=== PATIENT | female | born 1945 | race Asian ===

== ENCOUNTER 2021-06-18 18:26 | Inpatient (IN) | payer MEDICARE, OTHER ==
[~2021-06-18] VITALS: Ht 175.3 cm; Wt 80.7 kg
[2021-06-18] MEDS ORDERED: LOSA25TA21 PO (18:37)
[2021-06-18] MEDS ORDERED: ALLO100T2 PO (18:37)
[2021-06-18] MEDS ORDERED: PANT-31 PO (18:37)
[2021-06-18] MEDS ORDERED: ATOR20TA86 PO (18:37)
[2021-06-18 20:09] LABS: BASOPHILS % (AUTO) 0.5 % (0.0-2.0); EOSINOPHILS % (AUTO) 2.1 % (1.0-6.0); HEMATOCRIT 39.2 % (36-46); HEMOGLOBIN 12.9 g/dL (12.0-16.0); LYMPHOCYTES # (AUTO) 1.8 K/uL (1.0-4.8); LYMPHOCYTES % (AUTO) 24.8 % (22.0-44.0); MEAN CORPUSCULAR HGB CONC 32.8 G/dL (31.0-37.0); MEAN CORPUSCULAR VOLUME 88 fL (80-100); MONOCYTES # (AUTO) 0.6 K/uL (0.1-1.0); MONOCYTES % (AUTO) 7.8 % (2.0-9.0); NEUTROPHILS # (AUTO) 4.7 K/uL (1.8-7.7); NEUTROPHILS % (AUTO) 64.8 % (40.0-70.0); PLATELET COUNT (AUTO) 217 K/uL (150-450); RED BLOOD CELL COUNT(AUTO) 4.44 MIL/uL (4.00-5.20); RED CELL DISTRIBUTION WIDTH 13.4 % (11.5-14.5)
[2021-06-18 20:24] LABS: INR 0.9 (0.9-1.1); PROTHROMBIN TIME 10.1 SEC (9.4-11.6)
[2021-06-18 20:31] LABS: B-TYPE NATRIURETIC PEPTIDE 19 pg/mL (0-100)
[2021-06-18 20:42] LABS: ANION GAP 7 mmol/L (8-16); CALCIUM, TOTAL 9.2 mg/dL (8.8-10.5); CARBON DIOXIDE 30 mmol/L (22-29); CHLORIDE 103 mmol/L (98-107); CREATININE 0.76 mg/dL (0.60-1.30); GLOMERULAR FILTR. RATE CALC > 60 mL/min (>60); GLUCOSE,RANDOM 100 mg/dL (70-110); POTASSIUM 4.5 mmol/L (3.5-5.1); SODIUM SERUM 140 mmol/L (136-145); UREA NITROGEN, BLOOD 17 mg/dL (7-18)
[2021-06-18] MEDS ORDERED: NITROGLYCERIN 0.4 MG SUBLINGUAL TABLET #25 SL ONE (21:00)
[2021-06-18 21:08] LABS: ALANINE AMINOTRANSFERASE 36 U/L (12-78); ALBUMIN 3.6 g/dL (3.4-5.0); ALKALINE PHOSPHATASE 123 U/L (46-116); ASPARTATE AMINOTRANSFERASE 29 U/L (15-37); BILIRUBIN,TOTAL 0.4 mg/dL (0.1-1.0); CREATINE KINASE, TOTAL ONLY 180 U/L (26-192); LIPASE 107 U/L (73-393); TOTAL PROTEIN, SERUM 7.5 g/dL (6.4-8.2)
[2021-06-18] MEDS ORDERED: ASPIRIN 81 MG CHEWABLE TABLET PO ONE (21:15)
[2021-06-18] MEDS ORDERED: NITROGLYCERIN 0.4 MG SUBLINGUAL TABLET #25 SL PRN (21:30)
[2021-06-18] MEDS ORDERED: ONDANSETRON HCL 4 MG/2 ML VIAL IVP PRN (21:30)
[2021-06-18 21:48] LABS: D-DIMER 0.49 mg/L FEU (0.00-0.50)
[2021-06-19] MEDS: HEPARIN SODIUM,PORCINE 5,000 UNITS/ML VIAL SQ SCH ×3 (00:01→16:23)
[2021-06-19 01:24] LABS: APPEARANCE,URINE CLEAR (CLEAR); BILIRUBIN,URINE NEGATIVE (NEGATIVE); GLUCOSE, URINE (UA) NEGATIVE (NEGATIVE); KETONES,URINE NEGATIVE (NEGATIVE); LEUKOCYTE ESTERASE ,URINE NEGATIVE (NEGATIVE); NITRATE,URINE NEGATIVE (NEGATIVE); OCCULT BLOOD,URINE TRACE (NEGATIVE); PROTEIN,URINE NEGATIVE (NEGATIVE); UROBILINOGEN,URINE 0.2 mg/dL (<=1.0)
[2021-06-19 01:34] LABS: BACTERIA,URINE Rare /HPF (None Seen); SQUAMOUS EPITHELIAL CELL,UR Few /LPF (None Seen)
[2021-06-19] MEDS: ASPIRIN 81 MG CHEWABLE TABLET PO SCH (08:06)
[2021-06-19 10:17] VITALS: BP 151/79
[2021-06-19 12:32] VITALS: BP 143/73
[2021-06-19 16:47] VITALS: BP 120/60
[2021-06-19 20:25] VITALS: BP 144/67
[2021-06-19] MEDS: LOSARTAN POTASSIUM 25 MG TABLET PO SCH (20:31)
[2021-06-19] MEDS: PANTOPRAZOLE SODIUM 40 MG DR TABLET PO SCH (20:31)
[2021-06-19] MEDS: ALLOPURINOL 100 MG TABLET PO SCH (20:31)
[2021-06-19] MEDS: ACETAMINOPHEN 325 MG TABLET PO PRN (22:26)
[2021-06-20 05:06] VITALS: BP 130/63
[2021-06-20 07:01] LABS: BASOPHILS % (AUTO) 0.7 % (0.0-2.0); EOSINOPHILS % (AUTO) 2.7 % (1.0-6.0); HEMATOCRIT 41.3 % (36-46); HEMOGLOBIN 13.4 g/dL (12.0-16.0); LYMPHOCYTES # (AUTO) 1.7 K/uL (1.0-4.8); LYMPHOCYTES % (AUTO) 31.3 % (22.0-44.0); MEAN CORPUSCULAR HEMOGLOBIN 28.7 pg (26.0-34.0); MEAN CORPUSCULAR HGB CONC 32.4 G/dL (31.0-37.0); MEAN CORPUSCULAR VOLUME 89 fL (80-100); MONOCYTES # (AUTO) 0.4 K/uL (0.1-1.0); MONOCYTES % (AUTO) 7.5 % (2.0-9.0); NEUTROPHILS # (AUTO) 3.2 K/uL (1.8-7.7); NEUTROPHILS % (AUTO) 57.8 % (40.0-70.0); PLATELET COUNT (AUTO) 224 K/uL (150-450); RED BLOOD CELL COUNT(AUTO) 4.66 MIL/uL (4.00-5.20); RED CELL DISTRIBUTION WIDTH 13.7 % (11.5-14.5)
[2021-06-20 07:09] VITALS: BP 144/63
[2021-06-20 07:29] LABS: ALANINE AMINOTRANSFERASE 37 U/L (12-78); ALBUMIN 3.6 g/dL (3.4-5.0); ALKALINE PHOSPHATASE 123 U/L (46-116); ANION GAP 9 mmol/L (8-16); ASPARTATE AMINOTRANSFERASE 28 U/L (15-37); BILIRUBIN,TOTAL 0.5 mg/dL (0.1-1.0); CALCIUM, TOTAL 9.2 mg/dL (8.8-10.5); CARBON DIOXIDE 28 mmol/L (22-29); CHLORIDE 103 mmol/L (98-107); CREATININE 0.64 mg/dL (0.60-1.30); GLUCOSE,RANDOM 99 mg/dL (70-110); POTASSIUM 4.2 mmol/L (3.5-5.1); SODIUM SERUM 140 mmol/L (136-145); TOTAL PROTEIN, SERUM 7.5 g/dL (6.4-8.2); UREA NITROGEN, BLOOD 17 mg/dL (7-18)
[2021-06-20 07:31] LABS: GLOMERULAR FILTR. RATE CALC > 60 mL/min (>60)
[2021-06-20] MEDS: HEPARIN SODIUM,PORCINE 5,000 UNITS/ML VIAL SQ SCH ×4 (08:04→23:22)
[2021-06-20] MEDS: ASPIRIN 81 MG CHEWABLE TABLET PO SCH (08:04)
[2021-06-20] MEDS: ATORVASTATIN CALCIUM 20 MG TABLET PO SCH (08:04)
[2021-06-20 10:13] LABS: FREE T4 (FREE THYROXINE) 1.07 ng/dL (0.76-1.46); THYROID STIMULATING HORMONE 2.39 uIU/mL (0.36-3.74)
[2021-06-20 10:53] VITALS: BP 127/59
[2021-06-20 15:54] VITALS: BP 136/71
[2021-06-20 19:18] VITALS: BP 151/76
[2021-06-20] MEDS: LOSARTAN POTASSIUM 25 MG TABLET PO SCH (20:05)
[2021-06-20] MEDS: PANTOPRAZOLE SODIUM 40 MG DR TABLET PO SCH (20:05)
[2021-06-20] MEDS: ALLOPURINOL 100 MG TABLET PO SCH (20:05)
[2021-06-20] MEDS: ACETAMINOPHEN 325 MG TABLET PO PRN (20:53)
[2021-06-21 00:03] VITALS: BP 138/63
[2021-06-21] MEDS ORDERED: MELATONIN 3 MG TABLET PO PRN (00:15)
[2021-06-21 04:27] VITALS: BP 130/61
[2021-06-21 07:10] LABS: BASOPHILS % (AUTO) 0.8 % (0.0-2.0); EOSINOPHILS % (AUTO) 2.5 % (1.0-6.0); HEMOGLOBIN 12.8 g/dL (12.0-16.0); LYMPHOCYTES # (AUTO) 1.7 K/uL (1.0-4.8); LYMPHOCYTES % (AUTO) 29.9 % (22.0-44.0); MEAN CORPUSCULAR HEMOGLOBIN 28.7 pg (26.0-34.0); MEAN CORPUSCULAR HGB CONC 32.8 G/dL (31.0-37.0); MEAN CORPUSCULAR VOLUME 88 fL (80-100); MONOCYTES # (AUTO) 0.5 K/uL (0.1-1.0); MONOCYTES % (AUTO) 8.4 % (2.0-9.0); NEUTROPHILS # (AUTO) 3.4 K/uL (1.8-7.7); NEUTROPHILS % (AUTO) 58.4 % (40.0-70.0); PLATELET COUNT (AUTO) 212 K/uL (150-450); RED BLOOD CELL COUNT(AUTO) 4.45 MIL/uL (4.00-5.20); RED CELL DISTRIBUTION WIDTH 13.6 % (11.5-14.5)
[2021-06-21 07:49] LABS: ALANINE AMINOTRANSFERASE 33 U/L (12-78); ALBUMIN 3.4 g/dL (3.4-5.0); ALKALINE PHOSPHATASE 111 U/L (46-116); ANION GAP 7 mmol/L (8-16); ASPARTATE AMINOTRANSFERASE 23 U/L (15-37); BILIRUBIN,TOTAL 0.5 mg/dL (0.1-1.0); CALCIUM, TOTAL 8.8 mg/dL (8.8-10.5); CARBON DIOXIDE 29 mmol/L (22-29); CHLORIDE 103 mmol/L (98-107); CREATININE 0.75 mg/dL (0.60-1.30); GLUCOSE,RANDOM 99 mg/dL (70-110); POTASSIUM 3.9 mmol/L (3.5-5.1); SODIUM SERUM 139 mmol/L (136-145); TOTAL PROTEIN, SERUM 7.1 g/dL (6.4-8.2); UREA NITROGEN, BLOOD 15 mg/dL (7-18)
[2021-06-21 07:50] LABS: GLOMERULAR FILTR. RATE CALC > 60 mL/min (>60)
[2021-06-21 08:01] VITALS: BP 137/59
[2021-06-21] MEDS: ASPIRIN 81 MG CHEWABLE TABLET PO SCH (08:20)
[2021-06-21] MEDS: HEPARIN SODIUM,PORCINE 5,000 UNITS/ML VIAL SQ SCH ×3 (08:20→23:14)
[2021-06-21] MEDS: ATORVASTATIN CALCIUM 20 MG TABLET PO SCH (08:20)
[2021-06-21 19:20] VITALS: BP 136/68
[2021-06-21] MEDS: PANTOPRAZOLE SODIUM 40 MG DR TABLET PO SCH (20:26)
[2021-06-21] MEDS: ALLOPURINOL 100 MG TABLET PO SCH (20:26)
[2021-06-21] MEDS: LOSARTAN POTASSIUM 25 MG TABLET PO SCH (20:26)
[2021-06-21 23:08] VITALS: BP 111/61
[2021-06-22] VITALS (8 sets, daily range): BP systolic 108–153; BP diastolic 50–89
[2021-06-22 07:07] LABS: BASOPHILS % (AUTO) 0.5 % (0.0-2.0); EOSINOPHILS % (AUTO) 2.7 % (1.0-6.0); HEMATOCRIT 41.2 % (36-46); HEMOGLOBIN 13.5 g/dL (12.0-16.0); LYMPHOCYTES # (AUTO) 1.7 K/uL (1.0-4.8); MEAN CORPUSCULAR HEMOGLOBIN 29.3 pg (26.0-34.0); MEAN CORPUSCULAR HGB CONC 32.7 G/dL (31.0-37.0); MEAN CORPUSCULAR VOLUME 90 fL (80-100); MONOCYTES # (AUTO) 0.6 K/uL (0.1-1.0); MONOCYTES % (AUTO) 9.1 % (2.0-9.0); NEUTROPHILS # (AUTO) 3.7 K/uL (1.8-7.7); NEUTROPHILS % (AUTO) 59.7 % (40.0-70.0); PLATELET COUNT (AUTO) 219 K/uL (150-450); RED CELL DISTRIBUTION WIDTH 13.6 % (11.5-14.5)
[2021-06-22 08:20] LABS: ALANINE AMINOTRANSFERASE 47 U/L (12-78); ALBUMIN 3.6 g/dL (3.4-5.0); ALKALINE PHOSPHATASE 130 U/L (46-116); ANION GAP 7 mmol/L (8-16); ASPARTATE AMINOTRANSFERASE 34 U/L (15-37); BILIRUBIN,TOTAL 0.3 mg/dL (0.1-1.0); CALCIUM, TOTAL 9.2 mg/dL (8.8-10.5); CARBON DIOXIDE 28 mmol/L (22-29); CHLORIDE 102 mmol/L (98-107); CREATININE 0.68 mg/dL (0.60-1.30); GLUCOSE,RANDOM 99 mg/dL (70-110); POTASSIUM 4.6 mmol/L (3.5-5.1); SODIUM SERUM 137 mmol/L (136-145); TOTAL PROTEIN, SERUM 7.6 g/dL (6.4-8.2); UREA NITROGEN, BLOOD 16 mg/dL (7-18)
[2021-06-22 08:21] LABS: GLOMERULAR FILTR. RATE CALC > 60 mL/min (>60)
[2021-06-22] MEDS: ATORVASTATIN CALCIUM 20 MG TABLET PO SCH (08:50)
[2021-06-22] MEDS: ASPIRIN 81 MG CHEWABLE TABLET PO SCH (08:50)
[2021-06-22] MEDS: HEPARIN SODIUM,PORCINE 5,000 UNITS/ML VIAL SQ SCH ×2 (08:56→15:57)
[2021-06-22] MEDS ORDERED: REGADENOSON 0.4 MG/5 ML PF SYRINGE IVP ONE (12:15)
[2021-06-22] MEDS ORDERED: LOSA50TA37 PO (14:02)
[2021-06-22] MEDS ORDERED: ATOR40TA28 PO (14:02)
[2021-06-22] MEDS: ALLOPURINOL 100 MG TABLET PO SCH (20:12)
[2021-06-22] MEDS: PANTOPRAZOLE SODIUM 40 MG DR TABLET PO SCH (20:12)
[2021-06-22] MEDS: LOSARTAN POTASSIUM 25 MG TABLET PO SCH (20:13)
[2021-06-23] VITALS: BP 125/53
[2021-06-23] MEDS: HEPARIN SODIUM,PORCINE 5,000 UNITS/ML VIAL SQ SCH ×2 (00:53→08:19)
[2021-06-23 04:36] VITALS: BP 123/66
[2021-06-23 07:19] VITALS: BP 142/77
[2021-06-23] MEDS: ATORVASTATIN CALCIUM 20 MG TABLET PO SCH (08:18)
[2021-06-23] MEDS: ASPIRIN 81 MG CHEWABLE TABLET PO SCH (08:18)
[2021-06-23] MEDS ORDERED: LOSA25TA21 PO (10:41)
[2021-06-23] MEDS ORDERED: PANT-31 PO (10:45)
[2021-06-23] MEDS ORDERED: ASPI-1450 PO (10:45)
[2021-06-23] MEDS ORDERED: ACET-2247 PO (10:46)
[2021-06-23] MEDS ORDERED: MELA3TAB89 PO (10:46)
[2021-06-23] MEDS ORDERED: REGADENOSON 0.4 MG/5 ML PF SYRINGE IVP ONE (10:59)
[2021-06-25 12:08] LABS: GLUCOMETER DEV NAME(LOC) 5N.1C; GLUCOSE,POINT OF CARE 265 MG/DL (70-110)
== END 2021-06-23 11:00 | disposition home or self-care (01) | DRG 311 ==
LOC: EMS 18:29 → 5S 06-19 05:40
PROVIDERS: ADMIT Internal Medicine; ATTEND Internal Medicine
PROC: 4A02XM4 Measurement of Cardiac Total Activity, External Approach (ICD-10-PCS; principal; 2021-06-22)
PROC: 3E073KZ Introduction of Other Diagnostic Substance into Coronary Artery, Percutaneous Approach (ICD-10-PCS; 2021-06-22)
DX: I20.0 Unstable angina (principal); M10.9 Gout, unspecified; I10 Essential (primary) hypertension; F41.9 Anxiety disorder, unspecified; K59.00 Constipation, unspecified; E78.5 Hyperlipidemia, unspecified; R79.89 Other specified abnormal findings of blood chemistry
CPT/HCPCS: 71045; 78452; 80053; 81001; 82550; 82962; 83690; 83735; 83880; 84439; 84443; 84484; 84550; 85025; 85379; 85610; 85730; 93005; 93017; 93306; 99285; J1644; J2785; 36415-L1; 36415-TC

== ENCOUNTER 2022-09-26 13:03 | Emergency (ER) | payer MEDICARE, OTHER ==
[~2022-09-26] VITALS: Ht 154.9 cm; Wt 63.6 kg
[~2022-09-26 13:03] MED LIST: ACET-2247 PO; ALLO-97 PO; ASPI-1450 PO; ATOR40TA28 PO; LOSA-381 PO; MELA3TAB89 PO; PANT-31 PO
[2022-09-26 14:56] LABS: BASOPHILS % (AUTO) 0.9 % (0.0-2.0); EOSINOPHILS % (AUTO) 1.2 % (1.0-6.0); HEMOGLOBIN 12.7 g/dL (12.0-16.0); LYMPHOCYTES # (AUTO) 1.6 K/uL (1.0-4.8); LYMPHOCYTES % (AUTO) 27.1 % (22.0-44.0); MEAN CORPUSCULAR HGB CONC 32.6 G/dL (31.0-37.0); MEAN CORPUSCULAR VOLUME 86 fL (80-100); MONOCYTES # (AUTO) 0.4 K/uL (0.1-1.0); MONOCYTES % (AUTO) 7.6 % (2.0-9.0); NEUTROPHILS # (AUTO) 3.7 K/uL (1.8-7.7); NEUTROPHILS % (AUTO) 63.2 % (40.0-70.0); PLATELET COUNT (AUTO) 345 K/uL (150-450); RED BLOOD CELL COUNT(AUTO) 4.54 MIL/uL (4.00-5.20); RED CELL DISTRIBUTION WIDTH 14.5 % (11.5-14.5)
[2022-09-26 15:05] LABS: CARBON DIOXIDE 30 mmol/L (22-29); CHLORIDE 102 mmol/L (98-107); POTASSIUM 4.7 mmol/L (3.5-5.1); SODIUM SERUM 136 mmol/L (136-145)
[2022-09-26 15:06] LABS: ANION GAP 4 mmol/L (8-16); CREATININE 0.71 mg/dL (0.60-1.30); GLUCOSE,RANDOM 87 mg/dL (70-110); UREA NITROGEN, BLOOD 13 mg/dL (7-18)
[2022-09-26 15:08] LABS: GLOMERULAR FILTR. RATE CALC > 60 mL/min (>60)
[2022-09-26 16:26] VITALS: BP 155/90
== END 2022-09-26 16:31 | disposition home or self-care (01) ==
LOC: EMS 13:06
DX: R07.89 Other chest pain (principal); F41.9 Anxiety disorder, unspecified; E78.00 Pure hypercholesterolemia, unspecified; I10 Essential (primary) hypertension; M10.9 Gout, unspecified
CPT/HCPCS: 71045; 80048; 84484; 85025; 93005; 99285; 36415-L1; 36415-TC

== ENCOUNTER 2023-12-01 13:46 | Emergency (ER) | payer MEDICARE, OTHER ==
[~2023-12-01] VITALS: Ht 154.9 cm; Wt 79.9 kg
[2023-12-01] MEDS ORDERED: LOSA100T59 PO (13:53)
[2023-12-01] MEDS ORDERED: NIFE-78 PO (13:53)
[2023-12-01 14:11] VITALS: TEMP 98.7
[2023-12-01 14:12] LABS: BASOPHILS % (AUTO) 0.4 % (0.0-2.0); EOSINOPHILS % (AUTO) 2.5 % (1.0-6.0); HEMATOCRIT 37.6 % (36-46); HEMOGLOBIN 12.3 g/dL (12.0-16.0); MEAN CORPUSCULAR HEMOGLOBIN 28.8 pg (26.0-34.0); MEAN CORPUSCULAR HGB CONC 32.7 G/dL (31.0-37.0); MEAN CORPUSCULAR VOLUME 88 fL (80-100); MONOCYTES # (AUTO) 0.5 K/uL (0.1-1.0); MONOCYTES % (AUTO) 8.4 % (2.0-9.0); NEUTROPHILS # (AUTO) 3.7 K/uL (1.8-7.7); NEUTROPHILS % (AUTO) 57.7 % (40.0-70.0); PLATELET COUNT (AUTO) 233 K/uL (150-450); RED BLOOD CELL COUNT(AUTO) 4.26 MIL/uL (4.00-5.20); RED CELL DISTRIBUTION WIDTH 13.6 % (11.5-14.5); WHITE BLOOD COUNT (AUTO) 6.4 K/uL (4.5-11.0)
[2023-12-01 14:23] LABS: ANION GAP 7 mmol/L (8-16); CALCIUM, TOTAL 9.2 mg/dL (8.8-10.5); CARBON DIOXIDE 28 mmol/L (22-29); CHLORIDE 102 mmol/L (98-107); CREATININE 0.72 mg/dL (0.60-1.30); GLOMERULAR FILTR. RATE CALC > 60 mL/min (>60); GLUCOSE,RANDOM 94 mg/dL (70-110); POTASSIUM 4.2 mmol/L (3.5-5.1); SODIUM SERUM 137 mmol/L (136-145); UREA NITROGEN, BLOOD 17 mg/dL (7-18)
[2023-12-01 14:24] LABS: PROTHROMBIN TIME 10.3 SEC (9.4-11.6)
[2023-12-01 14:31] LABS: TROPONIN I-HIGH SENSITIVITY 7 ng/L (<51)
[2023-12-01 14:32] LABS: B-TYPE NATRIURETIC PEPTIDE 25 pg/mL (0-100)
[2023-12-01 14:47] LABS: ALANINE AMINOTRANSFERASE 25 U/L (12-78); ALBUMIN 3.5 g/dL (3.4-5.0); ALKALINE PHOSPHATASE 132 U/L (46-116); ASPARTATE AMINOTRANSFERASE 26 U/L (15-37); BILIRUBIN,TOTAL 0.3 mg/dL (0.1-1.0); CREATINE KINASE, TOTAL ONLY 151 U/L (26-192); TOTAL PROTEIN, SERUM 6.8 g/dL (6.4-8.2)
[2023-12-01 16:06] VITALS: BP 144/68; PULSE 61; RESP 16
== END 2023-12-01 16:52 | disposition home or self-care (01) ==
LOC: EMS 13:47
DX: R07.89 Other chest pain (principal); F41.9 Anxiety disorder, unspecified; E78.00 Pure hypercholesterolemia, unspecified; I10 Essential (primary) hypertension
CPT/HCPCS: 71045; 80053; 82550; 83880; 84484; 85025; 85610; 85730; 93005; 99285; 36415-L1; 36415-TC